=== PATIENT | female | born 1945 | race African-American/Black ===

== ENCOUNTER 2017-07-19 07:03 | Inpatient (IN) | payer MEDICARE ==
[~2017-07-19] VITALS: Ht 157.5 cm; Wt 68.5 kg
[2017-07-19 08:20] LABS: BASOPHILS % 1.4 % (0.0-2.0); EOSINOPHILS % 3.1 % (0.0-5.0); HEMATOCRIT. 43.5 % (36.0-48.0); HEMOGLOBIN. 14.4 g/dL (12.0-16.0); LYMPHOCYTES % 24.3 % (20.0-50.0); MEAN CORPUSCULAR HEMOGLOBIN 27.9 pg (28.0-32.0); MEAN CORPUSCULAR VOLUME 84.3 fL (81.0-99.0); MEAN PLATELET VOLUME 6.7 fl (7.4-10.4); MONOCYTES % 6.7 % (2.0-8.0); NEUTROPHILS % 64.5 % (40.0-76.0); PLATELET 317 x1000/uL (130-400); RED BLOOD CELL COUNT 5.16 mill/uL (4.2-5.4); RED CELL DISTRIBUTION WIDTH 14.2 % (11.6-14.6)
[2017-07-19 08:26] LABS: CHLORIDE 109 mEq/L (98-107)
[2017-07-19 08:27] LABS: PARTIAL THROMBOPLASTIN TIME 25.4 sec (23.4-31.0); PROTHROMBIN TIME 10.7 sec (9.4-11.6)
[2017-07-19] MEDS ORDERED: METF500T4 PO (08:31)
[2017-07-19] MEDS ORDERED: AMLO10TA80 PO (08:31)
[2017-07-19] MEDS ORDERED: ROSU10TA PO (08:31)
[2017-07-19] MEDS ORDERED: HYDR12.529 PO (08:31)
[2017-07-19] MEDS ORDERED: CLOP75TA16 PO (08:31)
[2017-07-19] MEDS ORDERED: FENTANYL CITRATE/PF 50MCG/ML 2ML VIAL ONE ×2 (08:47→10:51)
[2017-07-19] MEDS ORDERED: MIDAZOLAM HCL 2 MG/2 ML VIAL ONE ×2 (08:48→10:41)
[2017-07-19] MEDS ORDERED: PROPOFOL 200MG/20ML VIAL IV ONE ×4 (08:48→12:06)
[2017-07-19] MEDS ORDERED: IOHEXOL-300 100 ML BOTTLE ONE ×3 (08:55→10:49)
[2017-07-19] MEDS ORDERED: LIDOCAINE HCL/PF 1% 10 MG/ML 5ML VIAL ONE ×2 (08:55→10:07)
[2017-07-19] MEDS ORDERED: IOVERSOL 240MG/ML 100ML BOTTLE IV ONE (09:16)
[2017-07-19] MEDS ORDERED: HEPARIN 1000 UNITS/ML 10ML ONE (09:38)
[2017-07-19] MEDS ORDERED: IODIXANOL 320MG/ML 100 ML BOTTLE IV ONE (11:35)
[2017-07-19] MEDS ORDERED: CEFAZOLIN SODIUM 1000MG/VIAL ONE (12:33)
[2017-07-19] MEDS ORDERED: ATROPINE SULFATE 1MG/10ML SYR IV PRN (12:45)
[2017-07-19] MEDS ORDERED: HYDROMORPHONE HCL/PF 2MG/ML CPJ IV PRN (13:00)
[2017-07-19] MEDS ORDERED: ONDANSETRON HCL 4MG/2ML VIAL IV PRN (13:00)
[2017-07-19] MEDS ORDERED: FENTANYL CITRATE/PF 50MCG/ML 2ML VIAL IV PRN (13:00)
[2017-07-19 15:10] VITALS: BP 134/58
[2017-07-19 15:22] VITALS: BP 127/57
[2017-07-19] MEDS ORDERED: DEXTROSE 50% WATER 50ML SYRINGE IV PRN (15:45)
[2017-07-19] MEDS: SODIUM CHLORIDE 0.9% 1,000 ML IV SCH ×2 (15:50→22:27)
[2017-07-19] MEDS: CLOPIDOGREL 75MG TABLET PO SCH (15:52)
[2017-07-19 17:00] VITALS: BP 93/49
[2017-07-19] MEDS ORDERED: PNEUMOCOCCAL 23-VAL P-SAC VAC 0.5 ML IM ONE (17:15)
[2017-07-19] MEDS: BLOOD SUGAR DIAGNOSTIC STRIP TEST SCH ×2 (17:16→20:31)
[2017-07-19] MEDS: ACETAMINOPHEN 325MG TABLET PO PRN (17:16)
[2017-07-19] MEDS: INSULIN LISPRO 100 UNITS/ML SUBCUT SCH ×2 (17:20→20:30)
[2017-07-19 18:00] VITALS: BP 111/51
[2017-07-19] MEDS ORDERED: HYDROCODONE/ACETAMINOPHEN 5/325MG TABLET PO PRN (19:00)
[2017-07-19 20:00] VITALS: BP 137/64
[2017-07-19] MEDS ORDERED: ATORVASTATIN CALCIUM 20MG TABLET PO SCH (21:00)
[2017-07-19 22:00] VITALS: BP 98/44
[2017-07-20] VITALS (7 sets, daily range): BP systolic 107–151; BP diastolic 46–76
[2017-07-20] MEDS: ACETAMINOPHEN 325MG TABLET PO PRN (00:14)
[2017-07-20] MEDS: INSULIN LISPRO 100 UNITS/ML SUBCUT SCH ×2 (06:35→12:20)
[2017-07-20] MEDS: BLOOD SUGAR DIAGNOSTIC STRIP TEST SCH ×2 (06:35→11:50)
[2017-07-20] MEDS: CLOPIDOGREL 75MG TABLET PO SCH (08:15)
[2017-07-20 08:32] LABS: CHLORIDE 111 mEq/L (98-107)
[2017-07-20 09:00] LABS: HEMATOCRIT. 37.2 % (36.0-48.0); MEAN CORPUSCULAR HEMOGLOBIN 27.4 pg (28.0-32.0); MEAN CORPUSCULAR VOLUME 84.5 fL (81.0-99.0); PLATELET 236 x1000/uL (130-400); RED CELL DISTRIBUTION WIDTH 14.3 % (11.6-14.6)
[2017-07-20] MEDS ORDERED: POTASSIUM CHLORIDE 20MEQ TABLET SR PO SCH (09:45)
[2017-07-20 16:29] LABS: PLATELET ESTIMATE NORMAL
== END 2017-07-20 13:56 | disposition home or self-care (01) | DRG 272 ==
LOC: CCL 07:03 → 3WST 07:04
PROVIDERS: ADMIT Internal Medicine Cardiovascular Disease; ATTEND Internal Medicine Cardiovascular Disease
PROC: 04CL3ZZ Extirpation of Matter from Left Femoral Artery, Percutaneous Approach (ICD-10-PCS; 2017-07-19)
PROC: 047L3DZ Dilation of Left Femoral Artery with Intraluminal Device, Percutaneous Approach (ICD-10-PCS; 2017-07-19)
PROC: 047N3ZZ Dilation of Left Popliteal Artery, Percutaneous Approach (ICD-10-PCS; 2017-07-19)
PROC: 047Q3ZZ Dilation of Left Anterior Tibial Artery, Percutaneous Approach (ICD-10-PCS; 2017-07-19)
PROC: 047U3ZZ Dilation of Left Peroneal Artery, Percutaneous Approach (ICD-10-PCS; 2017-07-19)
PROC: B41G1ZZ Fluoroscopy of Left Lower Extremity Arteries using Low Osmolar Contrast (ICD-10-PCS; principal; 2017-07-20)
DX: E11.51 Type 2 diabetes mellitus with diabetic peripheral angiopathy without gangrene (principal); E11.622 Type 2 diabetes mellitus with other skin ulcer; Z78.1 Physical restraint status; I10 Essential (primary) hypertension
CPT/HCPCS: 36415; 37227; 37228; 37232; 75710; 80048; 82962; 85007; 85025; 85027; 85347; 85610; 85730; C1725; C1760; C1769; C1876; C1885; C1887; C1893; C1894; J0690; J1644; J2250; J2704; J3010; J3490; J7030; L1830; Q9967